=== PATIENT | male | born 1980 | race Caucasian/White ===

== ENCOUNTER 2016-08-02 15:08 | Emergency (ER) | payer MEDICAID, OTHER ==
[~2016-08-02] VITALS: Wt 82.0 kg
[2016-08-02] MEDS ORDERED: D-ME473S18 PO (15:49)
[2016-08-02] MEDS ORDERED: AZIT250T94 PO (15:49)
[2016-08-02] MEDS ORDERED: ALBU8.5H3 INH (15:51)
--- NOTE | 2016-08-02 16:00 | ERD ---
ER Documentation Chief Complaint Date/Time DATE: 08/02/16 TIME: 15:57 Chief Complaint COUGH AND CONGESTION WITH INTERMITTENT FEVERS FOR 2 WEEKS. HPI This is a 35-year-old male that presents to the ER with a cough for the last 2 weeks. Patient states that cough is worse at night it is productive in nature. He denies any chest pain or shortness of breath. Patient states that he feels like his cough is getting worse. He has been taking Tylenol, ibuprofen over-the- counter cough medicine however he has seen no improvement. States that he does get fevers at night he does not have a thermometer. ROS 12 point review of systems was done, all negative except per HPI. Medications Home Meds Active Scripts Albuterol Sulfate* (Proair HFA*) 8.5 Gm Hfa.aer.ad, 2 PUFF INH Q4, #1 INHALER Prov:ALPAJOSEWAYNE C 08/02/16 Dextromethorphan Hb-Promethazine Hcl (Promethazine DM Syrup) 473 Ml Syrup, 10 ML PO Q6H Y for COUGH, #4 OZ Prov:ALPAWAYNE Crawford 08/02/16 Azithromycin* (Zithromax*) 250 Mg Tablet, 250 MG PO .ZPACK DIRECTED, #6 TAB TAKE 500 MG (2 TABS) THE FIRST DAY THEN 250 MG (1 TAB) DAYS 2-5 Prov:WAYNE YUEN Ty 08/02/16 Physical Exam Vitals Vital Signs Date Time Temp Pulse Resp B/P Pulse Ox O2 Delivery O2 Flow Rate FiO2 08/02/16 15:17 98.9 101 21 138/85 97 Physical Exam GENERAL: The patient is well-developed, well-nourished, in no acute distress. NECK: Cervical spine is non tender with no step off. Supple, no nuchal rigidity HEENT: Atraumatic. Pupils equal, round and reactive to light. Extraocular muscles are grossly intact. Conjunctivae pink, no discharge. Bilateral tympanic membranes are clear with no evidence of erythema, effusion or dulling of the light reflex. Tonsilar erythema with no exudates or uvular deviation. Clear rhinorrhea. RESPIRATORY: Clear to auscultation bilaterally. There are no rales, wheezes or rhonchi. HEART: Regular rate and rhythm. No murmurs, clicks, rubs or gallops. EXTREMITIES: No clubbing or cyanosis. Full range of motion. Grossly neurovascularly intact. NEUROLOGIC: Alert and oriented. Cranial nerves II through XII are intact. SKIN: There is no rash. The skin is warm and dry. Procedures/MDM Differential diagnosis includes but is not limited to; Viral URI, allergic rhinitis, bronchitis, pertussis,pneumonia. Patient likely has bronchitis, he has had this cough for 2 weeks and is worsening he'll be given azithromycin.. Clinical suspicion for pneumonia is low as patient appears well, is not hypoxic or in any respiratory distress. Additionally, patients physical examination is benign. Plan was discussed with patient they understand and agree. Patient needs to follow up with PCP in 1-2 days or return to ER sooner if symptoms worsen. Departure Diagnosis: Primary Impression: Bronchitis Condition: Stable Patient Instructions: Bronchitis With Wheezing (Adult) Additional Instructions: Call your primary care doctor TOMORROW for an appointment during the next 1-2 days.See the doctor sooner or return here if your condition worsens before your appointment time. WAYNE YUEN Aug 02, 2016 15:59
== END 2016-08-03 08:25 | disposition home or self-care (01) ==
LOC: E/R 15:08
DX: J20.9 Acute bronchitis, unspecified (principal)
CPT/HCPCS: 99284